=== PATIENT | female | born 1955 | race Caucasian/White ===

== ENCOUNTER 2019-10-15 12:27 | Emergency (ER) | payer MEDICARE, OTHER, SELFPAY ==
[2019-10-15 12:42] VITALS: BP 145/91; PULSE 92; RESP 16; TEMP 37.2; O2SAT 99
--- NOTE | 2019-10-15 12:48 | ED.SKABFB ---
HPI - Skin/Abscess/Foreign Bdy General Chief complaint: Skin/Abscess/Foreign Body Stated complaint: rash Time Seen by Provider: 10/15/19 12:43 Source: patient and RN notes reviewed Mode of arrival: ambulatory Limitations: no limitations History of Present Illness HPI narrative: Patient presents today complaining of a rash that is severely pruritic to the abdomen, back, and neck x2 days. The itching seems to be worsening. Denies pain. No one else in her household is affected by this rash. No recent illness. No known exposure to allergens. She has been taking Benadryl and Zyrtec without relief. MD complaint: rash Related Data Home Medications Medication Instructions Recorded Confirmed pantoprazole 40 mg PO DAILY 10/15/19 10/15/19 sertraline 100 mg DAILY 10/15/19 10/15/19 simvastatin 40 mg DAILY 10/15/19 10/15/19 valsartan-hydrochlorothiazide 1 tablet DAILY 10/15/19 10/15/19 Allergies Allergy/AdvReac Type Severity Reaction Status Date / Time No Known Allergies Allergy Verified 10/15/19 12:33 Review of Systems Review of Systems: Narrative: CONSTITUTIONAL: Denies body aches, fever, chills, or sweats. EYES: Denies visual changes, redness, or discharge. ENT: Denies rhinorrhea, congestion, sore throat, or otalgia. CARDIOVASCULAR: Denies chest pain, palpitations, or edema. RESPIRATORY: Denies cough or dyspnea. GASTROINTESTINAL: Denies abdominal pain, nausea, vomiting, or diarrhea. GENITOURINARY: Denies dysuria or hematuria. SKIN: Denies wounds.+ Severely pruritic rash MUSCULOSKELETAL: Denies back pain, joint pain, or myalgia. NEUROLOGIC: Denies headache, numbness, tingling, or weakness. PSYCH: Denies depression or anxiety. [facility] Past Medical History Medical History (Updated 10/15/19 @ 15:22 by Moraima Leon, [facility], ) GERD (gastroesophageal reflux disease) Hypercholesterolemia Hypertension Family History Family History (Updated 03/06/12 @ 09:50 by DOCTOR UNKNOWN) Other Cerebrovascular accident Family history of arthritis Hypertension Social History Social History Smoking status: Never smoker Alcohol intake: current Gender identity (if verbalized by the patient): Female Comments At time of signature, I have reviewed and agree with nursing past medical, surgical, social and family history unless otherwise noted. Please see nursing chart for further information. There is no relevant family history pertinent to the presenting complaint Exam Narrative: Exam Narrative: GENERAL: Well-appearing, well-nourished, and in no acute distress. HEAD: Normocephalic, atraumatic. EYES: EOMI. No redness or drainage. Conjunctivae normal. ENT: Mucous membranes pink and moist. NECK: Normal AROM. Supple. No lymphadenopathy. CHEST: No respiratory distress. EXTREMITIES: Normal range of motion. No edema. SKIN: Warm, dry. Capillary refill normal. Normal skin turgor. Mildly erythematous widespread maculopapular rash to the abdomen, chest, neck, and back. Few scabs from scratching. No vesicles or drainage. No induration, ecchymosis, or petechiae. NEURO: No focal deficits. Alert and oriented x3. Gait steady. PSYCH: Normal affect. No signs of depression or anxiety. Course Vital Signs Vital signs: Vital Signs Temperature 99.0 F 10/15/19 12:42 Pulse Rate 92 10/15/19 12:42 Respiratory Rate 16 10/15/19 12:42 Blood Pressure 145/91 H 10/15/19 12:42 Pulse Oximetry 99 10/15/19 12:42 Temperature 99.0 F 10/15/19 12:42 Pulse Rate 92 10/15/19 12:42 Respiratory Rate 16 10/15/19 12:42 Blood Pressure 145/91 H 10/15/19 12:42 Pulse Oximetry 99 10/15/19 12:42 Reviewed. Pt has been instructed to follow up with her PCP regarding her elevated blood pressure today. MDM - Skin/Abscess/Foreign Bdy Differential Diagnosis Differential diagnosis: Likely abscess of skin or subcutaneous tissue, urticaria, cellulitis, eczema, impetigo, contact dermatitis and other (Scabies) Critical
== END 2019-10-15 13:00 | disposition home or self-care (01) ==
PROVIDERS: Emergency Provider Nurse Practitioner; PCP Family Medicine
DX: R21 Rash and other nonspecific skin eruption (principal); K21.9 Gastro-esophageal reflux disease without esophagitis; E78.00 Pure hypercholesterolemia, unspecified; I10 Essential (primary) hypertension
CPT/HCPCS: 99213; G0463

== ENCOUNTER 2023-09-13 07:08 | Outpatient (RCR) | payer MEDICARE, OTHER, SELFPAY ==
[2023-07-13 14:53] VITALS: BMI 31.4
== END 2023-10-11 23:59 | disposition home or self-care (01) ==
LOC: ANHWOC 07:08
PROVIDERS: PCP Family Medicine; Visit Provider Family Medicine
DX: Z43.2 Encounter for attention to ileostomy (principal)
CPT/HCPCS: 99212; 99213; 99214; 99215; A9270; G0463

== ENCOUNTER 2024-04-17 12:54 | Outpatient (RCR) | payer MEDICARE, OTHER, SELFPAY | END 2024-07-16 23:59 | disposition home or self-care (01) | LOC: ANHWOC 12:54 | PROVIDERS: PCP Family Medicine; Visit Provider Family Medicine | DX: Z93.2 Ileostomy status (principal) | CPT/HCPCS: 99212; G0463 ==